=== PATIENT | male | born 1970 | race African-American/Black ===

== ENCOUNTER 2018-04-07 16:17 | Emergency (ER) | payer OTHER ==
[2018-04-07] MEDS ORDERED: Sodium Chloride Irrig Solution 250 ML BOT ONE (17:14)
[2018-04-07] MEDS ORDERED: Triple Antibiotic Oint 1 GM Packet ONE (18:01)
[2018-04-07] MEDS ORDERED: Cephalexin 500 MG CAP ONE (18:15)
[2018-04-07] MEDS ORDERED: Naproxen 500 MG TAB ONE (18:15)
--- NOTE | 2018-04-07 19:24 | RAD ---
THREE VIEWS OF RIGHT HAND: 04/07/18 INDICATION: Right middle finger injury. FINDINGS: There is a comminuted moderately displaced fracture involving the distal phalanx of the right long fi nger. There is soft tissue laceration overlying the fracture site. No additional acute osseous abnorm ality is evident. IMPRESSION: Comminuted distal phalangeal fracture of the right long finger with associated laceration. POS: [facility]
== END 2018-04-07 18:49 | disposition home or self-care (01) ==
LOC: MADERS 16:17
DX: S62.632A Displaced fracture of distal phalanx of right middle finger, initial encounter for closed fracture (principal); I10 Essential (primary) hypertension; W25.XXXA Contact with sharp glass, initial encounter; Y92.89 Other specified places as the place of occurrence of the external cause
CPT/HCPCS: 12001; J2001